=== PATIENT | male | born 2005 | race Caucasian/White ===

== ENCOUNTER 2024-07-17 21:22 | Emergency (ER) | payer MEDICAID ==
[~2024-07-17] VITALS: Ht 175.3 cm; Wt 79.4 kg
[2024-07-18] MEDS ORDERED: TOBR5DRO36 RIGHTEYE (00:31)
[2024-07-18 01:52] VITALS: BP 112/71; TEMP 98.5; O2SAT 98
== END 2024-07-18 01:53 | disposition home or self-care (01) ==
LOC: ER 21:34
DX: H10.32 Unspecified acute conjunctivitis, left eye (principal); R05.9 Cough, unspecified; R09.81 Nasal congestion; J02.9 Acute pharyngitis, unspecified; J06.9 Acute upper respiratory infection, unspecified; Z20.822 Contact with and (suspected) exposure to COVID-19
CPT/HCPCS: 86403-TC; 87070-TC